=== PATIENT | male | born 1960 | race Caucasian/White ===

== ENCOUNTER 2018-07-06 14:24 | Emergency (ER) | payer OTHER ==
--- NOTE | 2018-07-06 15:18 | EDPHY ---
H & P Stated Complaint: swollen ankle and elevated d dimer Time Seen by Provider: 07/06/18 14:55 HPI/ROS: CHIEF COMPLAINT: Right ankle swelling HISTORY OF PRESENT ILLNESS: 57-year-old male presents with a 10 day history of moderate right ankle swelling. Swelling began 10 days ago and has stayed the same, not increasing. Has been icing the ankle with minimal relief. No aggravating factors. No associated pain or other sx. Saw his primary care physician today, D-dimer was elevated. Sent here for right lower extremity ultrasound. No chest pain, shortness of breath or prior VTE. 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 REVIEW OF SYSTEMS: complete 10 point ROS reviewed and is negative except for the noted elements in the HPI - Personal History Current Tetanus/Diphtheria Vaccine: Yes Current Tetanus Diphtheria and Acellular Pertussis (TDAP): Yes - Medical/Surgical History Hx Asthma: No Hx Chronic Respiratory Disease: No Hx Diabetes: No Hx Cardiac Disease: No Hx Renal Disease: No Hx Cirrhosis: No Hx Alcoholism: No Hx HIV/AIDS: No Hx Splenectomy or Spleen Trauma: No Other PMH: ankle surgery 30 years ago - Social History Smoking Status: Never smoked Alcohol Use: Sober Drug Use: None - Physical Exam Exam: General Appearance: Alert, pleasant Eyes: Pupils equal and round, no conjunctival pallor or injection ENT, Mouth: Mucous membranes moist Neck: Normal inspection Respiratory: Lungs are clear to auscultation Cardiovascular: Regular rate and rhythm Gastrointestinal: Abdomen is soft and nontender Neurological: A&O, nonfocal, normal gait Skin: Warm and dry, no rash Extremities: Right lower extremity-moderate edema ankle and foot, without tenderness, no calf swelling or tenderness Psychiatric: Mood and affect normal Constitutional: Initial Vital Signs Temperature (C) 36.9 C 07/06/18 14:32 Heart Rate 71 07/06/18 14:32 Respiratory Rate 16 07/06/18 14:32 Blood Pressure 136/86 H 07/06/18 14:32 O2 Sat (%) 96 07/06/18 14:32 O2 Delivery Mode Room Air Allergies/Adverse Reactions: No Known Allergies Allergy (Unverified 06/13/10 09:45) Home Medications: Medication Instructions Recorded NO HOME MEDS 06/13/10 Rivaroxaban [Xarelto 15mg (*)] 15 mg PO BID #42 tab 07/06/18 Medical Decision Making - Diagnostics Imaging Results: Extremity Venous Study 07/06/18 14:55 Impression: Positive deep venous thrombosis in the right calf soleal vein. Findings and recommendations discussed with Emergency Department physician, Karla Brice M.D., at 1544 hours, on July 06, 2018. Final report concurs with initial preliminary interpretation. Imaging: Discussed imaging studies w/ it audit manager Radiologist ED Course/Re-evaluation: This pt presents with a RLE symptomatic DVT, dx'd by sono today in ED. I do not suspect PE, given no cp/SOB. Risks/benefits of anticoagulation d/w pt, pt understands and accepts rx. Hypercoag panel pending. Rx: Xarelto. f/u PCP. Differential Diagnosis: includes though not limited to strain, cellulitis, gout, pseudogout, joins infection, PE - Data Points Laboratory Results: Laboratory Results 07/06/18 16:45 07/06/18 16:45 Departure - Departure Disposition: Home, Routine, Self-Care Clinical Impression: DVT (deep venous thrombosis) Qualifiers: DVT location: lower extremity Affected thrombotic vein of extremity: unspecified lower extremity distal vein Chronicity: acute Laterality: right Qualified Code(s): I82.4Z1 - Acute embolism and thrombosis of unspecified deep veins of right distal lower extremity Condition: Good Instructions: Rivaroxaban (By mouth), Deep Vein Thrombosis (ED) Additional Instructions: You have a blood clot in your right lower leg. I have prescribed Xarelto, which is a blood thinner. You will take Xarelto 1 tablet twice a day for 3 weeks. After that you will need a new prescription from your physician for once a day dosing of Xarelto. Referrals: Yasmeen Brown MD [[facility] [place] Primary Care Provider] - As per Instructions Prescriptions: Rivaroxaban [Xarelto 15mg (*)] 15 mg PO BID #42 tab
[2018-07-06 16:59] VITALS: BP 145/78
[2018-07-06 17:01] LABS: PLATELET COUNT 376 10^3/uL (150-400)
[2018-07-06 17:39] LABS: INR 1.02 (0.83-1.16); PROTIME(PATIENT) 13.6 SEC (12.0-15.0)
== END 2018-07-06 16:58 | disposition home or self-care (01) ==
DX: I82.491 Acute embolism and thrombosis of other specified deep vein of right lower extremity (principal); R79.1 Abnormal coagulation profile
CPT/HCPCS: 85300-90; 85303-90; 85306-90; 86147-90

== ENCOUNTER → 2018-07-16 | Outpatient (CLI) | payer OTHER | LOC: CIMAGING 10:53 | PROVIDERS: ATTEND Family Medicine | DX: I82.890 Acute embolism and thrombosis of other specified veins (principal) | CPT/HCPCS: 93971-PO ==